=== PATIENT | female | born 1935 | race Two or more races ===

== ENCOUNTER 2017-10-23 12:56 | Outpatient (CLI) | payer MEDICARE, BC | END 2017-10-23 23:59 | disposition home or self-care (01) | LOC: WOU 12:56 | PROVIDERS: ATTEND Podiatrist Foot & Ankle Surgery | DX: E11.621 Type 2 diabetes mellitus with foot ulcer (principal); L97.412 Non-pressure chronic ulcer of right heel and midfoot with fat layer exposed; E11.42 Type 2 diabetes mellitus with diabetic polyneuropathy; L90.9 Atrophic disorder of skin, unspecified; R60.0 Localized edema; G89.29 Other chronic pain | CPT/HCPCS: 11042; A6402 ==

== ENCOUNTER 2017-10-31 11:20 | Outpatient (CLI) | payer MEDICARE, BC | END 2017-10-31 23:59 | disposition home or self-care (01) | LOC: WOU 11:20 | PROVIDERS: ATTEND Podiatrist Foot & Ankle Surgery | DX: E11.621 Type 2 diabetes mellitus with foot ulcer (principal); L97.412 Non-pressure chronic ulcer of right heel and midfoot with fat layer exposed; R60.0 Localized edema; R60.9 Edema, unspecified | CPT/HCPCS: A6402; G0463 ==

== ENCOUNTER 2017-11-21 10:52 | Outpatient (CLI) | payer MEDICARE, BC | END 2017-11-21 23:59 | disposition home or self-care (01) | LOC: WOU 10:52 | PROVIDERS: ATTEND Podiatrist Foot & Ankle Surgery | DX: E11.42 Type 2 diabetes mellitus with diabetic polyneuropathy (principal); Z86.31 Personal history of diabetic foot ulcer; B35.1 Tinea unguium; R60.0 Localized edema; L60.3 Nail dystrophy; Z79.899 Other long term (current) drug therapy | CPT/HCPCS: A6402; G0463 ==

== ENCOUNTER 2018-06-19 14:06 | Outpatient (CLI) | payer MEDICARE, BC | END 2018-06-19 23:59 | disposition home or self-care (01) | LOC: WOU 14:06 | PROVIDERS: ATTEND Podiatrist Foot & Ankle Surgery | DX: S90.31XA Contusion of right foot, initial encounter (principal); X58.XXXA Exposure to other specified factors, initial encounter; Y92.89 Other specified places as the place of occurrence of the external cause; E11.42 Type 2 diabetes mellitus with diabetic polyneuropathy; Z79.84 Long term (current) use of oral hypoglycemic drugs; Z79.899 Other long term (current) drug therapy | CPT/HCPCS: 10140; A6402; Z7610 ==